=== PATIENT | male | born 1980 | race Caucasian/White ===

== ENCOUNTER 2021-03-02 16:21 | Emergency (ER) | payer OTHER, SELFPAY ==
[2021-03-02 16:31] VITALS: BP 110/62; BP 120/66; PULSE 106; PULSE 114; RESP 18; TEMP 37; O2SAT 94; O2SAT 98; BMI 24.0
--- NOTE | 2021-03-02 16:33 | ED_ITS ---
HPI - Overdose General Chief Complaint: Altered Mental Status Stated Complaint: drug use Time Seen by Provider: 03/02/21 16:31 Source: patient Mode of arrival: ambulatory Limitations: no limitations History of Present Illness HPI Narrative: Patient with history of substance abuse use IVDA heroin used 2 bags at noon time was found on the street by police with erratic behavior patient had vaccine against COVID-19 Related Data Allergies Allergy/AdvReac Type Severity Reaction Status Date / Time No Known Allergies Allergy Verified 03/02/21 16:31 [facility] Past Medical History Medical History Unable to acculturate Social History Social History Advance Directives: No Advance Directives Information Provided: No Physical Exam Vital Signs: Vital Signs: Last Vital Signs Temp 98.6 F 03/02/21 16:31 Pulse 114 H 03/02/21 16:31 Resp 18 03/02/21 16:31 BP 120/66 03/02/21 16:31 Pulse Ox 94 03/02/21 16:31 Body Mass Index 24.0 Appearance: Alert. Oriented X3. No acute distress. Anxious Eyes: PERRLA, No Nystagmus ENT: Pharynx normal. Oral Mucosa moist Neck: Normal inspection. Neck supple. CVS: Normal heart rate and rhythm. Pulses normal. Respiratory: No respiratory distress. Equal air entry bilateral, no wheezing/rales/rhonchi Abdomen: Soft and nontender. Bowel sounds are present, no mass palpable, no CVA tenderness Skin: Skin warm and dry. Normal skin color. Normal skin turgor. Extremities: No lower extremity edema. No calf tenderness Neuro: Oriented X 3. No motor deficit. No sensory deficit.No cerebellar signs , cranial nerves II-XII intact MDM - Overdose MDM Narrative Medical decision making narrative: Patient refused any help would like to go home alert ,and oriented x3 saturating 94% on room air Discharge Plan Discharge Clinical Impression: Opiate abuse, continuous Patient Disposition: Home, Self-Care Instructions: Narcotic Use Disorder (ED), Opioid Use Disorder (ED) Additional Instructions: Stop using heroin and follow up with detox Interventions: ED Discharge Assessment Last Done: 03/02/21 17:27 Discharge Date/Time: 03/02/21 17:28
--- NOTE | 2021-03-02 16:43 | PC.NURSE ---
pupils 2-3mm. children's ministry director present for triage.
--- NOTE | 2021-03-02 17:05 | PC.NURSE ---
no longer diaphoretic. is ambulatory. coloring in his own coloring book. recovery coaches in to speak with patient.
--- NOTE | 2021-03-02 17:42 | MHC.RECOVSUP ---
? Reason for consult Recovery Support o Current location: ED9 o Identified substance use concern: heroin - Support ? Intervention: o Community resources provided o Harm reduction discussion ? Plan: o Follow up tomorrow o Patient awaiting crisis evaluation o Patient to follow up with [facility] after discharge ? Additional information: Met with patient and talk about getting help tomorrow for detox.. Patient was given resources to go to tomorrow for help and support to detox..
== END 2021-03-02 17:28 | disposition home or self-care (01) ==
PROVIDERS: Emergency Provider Internal Medicine
DX: F11.150 Opioid abuse with opioid-induced psychotic disorder with delusions (principal)
CPT/HCPCS: 99282